=== PATIENT | female | born 1970 | race Hispanic/Latino ===

== ENCOUNTER 2019-06-25 09:43 | Emergency (ER) | payer SELFPAY ==
[~2019-06-25] VITALS: Ht 152.4 cm; Wt 65.0 kg
[~2019-06-25 09:43] MED LIST: GENTAMICIN15 ML/BTL OP; HELIDAC PO; IRON325 M1 PO; LACRI-LUBE S.O.P. OS; LORTAB5 PO; Levaquin OR; MIRALAX3350 N1 PO; NAPROSYN500 MG PO; NO; PHENERGAN25 MG RE; PREVACID30 M2 PO; PRILOSEC20 MG/CAP PO; TRAMADOL HCL50 MG PO; ZOFRAN ODT4 MG PO; ZOFRAN ODT8 MG SL
[2019-06-25] MEDS ORDERED: KEFLEX500 M1 PO (10:26)
[2019-06-25] MEDS ORDERED: ULTRAM50 MG PO (10:26)
[2019-06-25 11:20] VITALS: BP 149/83
== END 2019-06-25 11:20 | disposition home or self-care (01) | DRG 159 ==
LOC: ED 09:43
DX: K02.9 Dental caries, unspecified (principal); K04.7 Periapical abscess without sinus